=== PATIENT | female | born 2000 | race Caucasian/White ===

== ENCOUNTER 2021-11-17 08:01 | Inpatient (IN) ==
[2021-11-17] MEDS ORDERED: Famotidine 20 MG/2 ML VIAL IVP PRN (08:18)
[2021-11-17] MEDS ORDERED: Metoclopramide 10 MG/2 ML VIAL IVP PRN (08:18)
[2021-11-17] MEDS ORDERED: *HR* Nalbuphine 10 MG/ML AMPUL IV PRN (08:18)
[2021-11-17] MEDS ORDERED: Ondansetron 4 MG/2 ML VIAL IVP PRN (08:18)
[2021-11-17] MEDS ORDERED: Naloxone 0.4 MG/ML INJ IVP PRN (08:18)
[2021-11-17] MEDS ORDERED: miSOPROStoL 25 MCG TABLET PO PRN (08:20)
[2021-11-17] MEDS ORDERED: Ringers Solution, Lactated 1,000 ML IVC SCH (08:30)
[2021-11-17 08:57] LABS: Basophils # 0.1 K/mcL (0.0-0.2); Basophils % 0.5 %; Eosinophils % 0.2 %; Hemoglobin 11.5 g/dL (11.5-15.4); Immature Granulocytes % 0.6 % (0-4); Lymphocytes # 2.1 K/mcL (0.6-4.6); Lymphocytes % 18.6 %; Mean Corpuscular HGB Conc 33.8 g/dL (31.6-35.5); Mean Corpuscular Hemoglobin 30.2 pg (28.0-33.3); Mean Corpuscular Volume 89.2 fL (83.0-100.0); Mean Platelet Volume 10.8 fL (9.4-12.4); Monocytes # 0.7 K/mcL (0.0-1.3); Monocytes % 6.4 %; Neutrophils # 8.3 K/mcL (1.6-8.9); Platelet Count 284 K/mcL (140-400); Red Blood Count 3.81 M/mcL (3.82-4.97); Segmented Neutrophils % 73.7 %; White Blood Count 11.2 K/mcL (4.3-11.1)
[2021-11-17 09:06] LABS: Amphetamine Screen,Urine Negative ng/mL (Cutoff=1000); Barbiturate Screen,Urine Negative ng/mL (Cutoff=200); Benzodiazepines Screen,Urine Negative ng/mL (Cutoff=200); Cannabinoid Screen,Urine Negative ng/mL (Cutoff = 50); Cocaine Screen,Urine Negative ng/mL (Cutoff= 300); Opiate Screen,Urine Negative ng/mL (Cutoff=300); Phencyclidine Screen,Urine Negative ng/mL (Cutoff=25)
[2021-11-17 09:31] LABS: Influenza A PCR Negative (Negative); Influenza B PCR Negative (Negative); Resp. Syncytial Virus PCR Negative (Negative)
[2021-11-17 09:32] LABS: SARS-CoV-2 by PCR (In House) Positive (Negative)
[2021-11-17] MEDS ORDERED: Ropivacaine/PF 0.2% 20 ML VIAL EP ONE (10:06)
[2021-11-17] MEDS ORDERED: *HR* FentaNYL (PF) 100 MCG/2 ML VIAL EP ONE (10:06)
[2021-11-17] MEDS ORDERED: EPHEDrine 50 MG/ML VIAL IVP PRN (10:06)
[2021-11-17] MEDS ORDERED: Epidural Premix (fent/bupiv) 110 ML EP SCH (10:15)
[2021-11-17] MEDS ORDERED: Oxytocin 30 UNIT/503 ML BAG IVC SCH ×2 (13:30→21:59)
[2021-11-17] MEDS ORDERED: Ropivacaine/PF 0.2% 20 ML VIAL ONE (15:16)
[2021-11-17] MEDS ORDERED: *HR* FentaNYL (PF) 100 MCG/2 ML VIAL ONE (15:16)
[2021-11-17] MEDS ORDERED: Ibuprofen 600 MG TABLET PO ONE (19:25)
[2021-11-17] MEDS ORDERED: Lanolin 7 G OINT...G. TP PRN (21:59)
[2021-11-17] MEDS ORDERED: Benzocaine/Menthol 56 GM AEROSOL SPRAY TP PRN (21:59)
[2021-11-17] MEDS ORDERED: Ondansetron ODT 4 MG TAB.RAPDIS SL PRN (21:59)
[2021-11-17] MEDS: Ibuprofen 600 MG TABLET PO SCH (22:59)
[2021-11-17] MEDS: Acetaminophen 325 MG TABLET PO SCH (22:59)
[2021-11-18 07:13] VITALS: BP 127/94; PULSE 95; TEMP 97.9; O2SAT 99
[2021-11-18] MEDS: Ibuprofen 600 MG TABLET PO SCH (08:11)
[2021-11-18] MEDS: Acetaminophen 325 MG TABLET PO SCH (08:11)
[2021-11-18] MEDS ORDERED: Prenatal Vit/FA 1 EACH TABLET PO SCH (09:00)
[2021-11-18 11:05] LABS: Basophils % 0.3 %; Eosinophils % 0.1 %; Hematocrit 32.7 % (35.3-44.9); Hemoglobin 10.9 g/dL (11.5-15.4); Immature Granulocytes % 0.6 % (0-4); Lymphocytes # 1.9 K/mcL (0.6-4.6); Lymphocytes % 16.4 %; Mean Corpuscular HGB Conc 33.3 g/dL (31.6-35.5); Mean Corpuscular Hemoglobin 30.1 pg (28.0-33.3); Mean Corpuscular Volume 90.3 fL (83.0-100.0); Mean Platelet Volume 11.2 fL (9.4-12.4); Monocytes # 0.5 K/mcL (0.0-1.3); Monocytes % 4.6 %; Neutrophils # 9.1 K/mcL (1.6-8.9); Platelet Count 235 K/mcL (140-400); Red Blood Count 3.62 M/mcL (3.82-4.97); Red Cell Distribution Width 13.2 % (11.5-14.5); White Blood Count 11.7 K/mcL (4.3-11.1)
[2021-11-18 11:21] LABS: Alanine Aminotransferase 9 Units/L (7-52); Aspartate Amino Transferase 17 Units/L (13-39); BUN/Creatinine Ratio 14 (6-26); Blood Urea Nitrogen 11 mg/dL (6-20); Lactate Dehydrogenase 140 Units/L (140-271); Uric Acid 6.5 mg/dL (2.3-7.6); eGFR For African Americans > 60 (> 60); eGFR For Non-African Americans > 60 (> 60)
== END 2021-11-18 19:44 | disposition home or self-care (01) | DRG 560 ==
LOC: 1NENULAB 08:01 → 1NENUOBS 22:00
PROVIDERS: ADMIT Advanced Practice Midwife; ATTEND Advanced Practice Midwife